=== PATIENT | male | born 1950 | race Hispanic/Latino ===

== ENCOUNTER 2019-12-20 11:09 | Emergency (ER) | payer MEDICAID, OTHER ==
[2019-12-20] MEDS ORDERED: LEVOFLOXACIN 500 MG/D5W 100 ML 100 ML ONE (15:31)
== END 2019-12-20 17:21 | disposition home or self-care (01) ==
LOC: EDH 11:09
DX: N45.3 Epididymo-orchitis (principal); R31.9 Hematuria, unspecified
CPT/HCPCS: 36415; 76870; 80053; 81001; 85025; 87077; 87088; 87186; 96365; 99285; J1956